=== PATIENT | female | born 1975 | race Caucasian/White ===

== ENCOUNTER 2024-12-07 20:04 | Emergency (ER) | payer BC, SELFPAY ==
[2024-12-07 20:08] VITALS: BP 193/121
[2024-12-07 20:41] LABS: % Basophils 0.4 % (0-2); % Eosinophils 0.7 % (0-6); % Immature Granulocytes 0.2 % (0-0.5); % Lymphocytes 20.6 % (20.5-51.1); % Monocytes 5.2 % (1.7-9.3); % Neutrophils 72.9 % (42.2-75.2); Absolute Basophils 0.1 10^3/uL (0-0.2); Absolute Eosinophils 0.1 10^3/uL (0-0.7); Absolute Lymphocytes 2.5 10^3/uL (1.2-3.4); Absolute Monocytes 0.6 10^3/uL (0.1-0.6); Absolute Neutrophils 8.9 10^3/uL (1.4-6.5); Hematocrit 38.6 % (37.0-47.0); Hemoglobin 13.2 g/dL (12.0-16.0); Mean Corp Hgb Conc. 34.2 g/dL (33.0-37.0); Mean Corpuscular Hgb 30.3 pg (27.0-31.0); Mean Corpuscular Volume 88.5 fL (81.0-99.0); Mean Platelet Volume 11.8 fL (7.4-10.4); Nucleated Red Blood Cells % 0 %; Platelet Count 259 10^3/uL (130-400); Red Blood Cell Count 4.36 10^6/uL (4.20-5.40); Red Cell Dist. Width 14.6 % (11.5-14.5); White Blood Cell Count 12.2 10^3/uL (4.8-10.8)
[2024-12-07 20:47] LABS: HCG, Serum Qualitative Screen Negative
[2024-12-07 20:53] LABS: ALT (SGPT) 34 U/L (0-35); AST (SGOT) 27 U/L (14-36); Albumin 4.2 g/dl (3.5-5.0); Alkaline Phosphatase 70 U/L (38-126); Blood Urea Nitrogen 20 mg/dl (7-17); Calcium 9.8 mg/dl (8.4-10.2); Carbon Dioxide 23 mmol/L (22-30); Chloride 105 mmol/L (98-107); Glucose 117 mg/dl (70-99); Potassium 3.9 mmol/L (3.5-5.1); Sodium 136 mmol/L (135-145); Total Bilirubin 0.3 mg/dl (0.2-1.3); Total Protein 6.6 g/dl (6.3-8.2); eGFR > 60.00
[2024-12-07 21:25] VITALS: BP 173/114
[2024-12-07 22:00] VITALS: BP 180/109
--- NOTE | 2024-12-07 22:16 | ED.GENMED ---
History of Present Illness
General
Chief Complaint: Blood Pressure Problem
Source: patient
Exam Limitations: none
Time Seen by Provider: 12/07/24 21:56
Nursing documentation reviewed up to this point in time: agreed with
History of Present Illness
History of Present Illness:
This a pleasant 49-year-old female who presents with high blood pressure. Patient saw her PCP 3 weeks ago and told she had a high blood pressure. She decided to make some dietary changes and decreased her salt intake. She has been on a carb only
diet and watching what she eats. She took her blood pressure tonight and it was still elevated. Patient denies any symptoms. She is concerned that she may have deleterious side effects from this high blood pressure.
Past History
Past History
ED Past Medical History: Other (Iron deficiency)
ED Past Surgical History: Other (Liposuction)
Social History
Tobacco: Smoker
Alcohol: Occasional
Drug: None
Personal:
Living: with family
Employment: Employed
Review of Systems
Review of Systems
Allergies reviewed?: Yes
All Other Systems: ROS reviewed and negative except as documented in HPI and ROS
Constitutional: Reports no symptoms
EENT: Reports no symptoms
Respiratory: Reports no symptoms
Cardiac: Reports no symptoms
ABD/GI: Reports no symptoms
: Reports no symptoms
Musculoskeletal: Reports no symptoms
Skin: Reports no symptoms
Neurological: Reports no symptoms
Endocrine: Reports no symptoms
Hematologic/Lymphatic: Reports no symptoms
Psychiatric: Reports no symptoms
Phy Exam
General Physical Exam
General Presentation: well appearing and no apparent distress
General Skin: warm and dry
General Habitus: normal
General Mental: alert
General Hydration: appears well hydrated
ENT Exam
ENT Exam: EOMI, pharynx normal, neck supple and normocephalic
Eye Exam
Eye Exam: PERRL, cornea clear and conjunctiva normal
Cardiovascular Exam
Cardiovascular Exam: regular rate/rhythm, no edema, no murmur and normal peripheral pulses
Pulmonary Exam
Pulmonary Exam: lungs clear, no respiratory distress, no rales, no crackles, no rhonchi, no stridor, no wheezing and no cough
Gastrointestinal Exam
Gastrointestinal Exam: normal bowel sounds, non tender, soft, no organomegaly, no pulsatile mass and non distended
Neurological Exam
Neurological Exam: alert, oriented x3, no motor deficits and speech normal
Musculoskeletal Exam
Musculoskeletal Exam: full ROM and no edema
Skin Exam
Skin Exam: normal color, warm/dry, no rash and no petechia
Psychiatric Exam
Psychiatric Exam: normal mood/affect
Course
Orders/Labs/Results
Orders:
Orders
12/07/24 20:12
Electrocardiogram (*1) Urgent
Reason for Study: Tachycardia
12/07/24 20:13
EKG- Treatment ONCE
Test Result ONCE
12/07/24 20:27
Complete Blood Count/With Diff Urgent
Comprehensive Metabolic Panel Urgent
HCG, Serum Qualitative Screen Urgent
12/07/24 22:15
0.9% Sodium Chloride 1000 ml [Nss] 1,000 ml IV BOLUS
12/07/24 22:29
D-Dimer Urgent
TSH Reflex To Free T4 Urgent
Abnormal Lab Results
12/07/24
20:27
WBC 12.2 H 10^3/uL
(4.8-10.8)
RDW 14.6 H %
(11.5-14.5)
MPV 11.8 H fL
(7.4-10.4)
Absolute Neuts (auto) 8.9 H 10^3/uL
(1.4-6.5)
BUN 20 H mg/dl
(7-17)
Glucose 117 H mg/dl
(70-99)
12/07/24 20:27
12/07/24 20:27
Vital Signs
Initial and Last Documented VS:
Initial Vital Signs
Temp Pulse Resp BP Pulse Ox
97.9 F 113 16 193/121 100
12/07/24 20:08 12/07/24 20:08 12/07/24 20:08 12/07/24 20:08 12/07/24 20:08
Last Documented Vital Signs
Temp Pulse Resp BP Pulse Ox
97.9 F 94 18 177/93 99
12/07/24 20:08 12/08/24 00:00 12/08/24 00:00 12/08/24 00:00 12/08/24 00:00
*Critical Care Note
Total Time (30-74mins, 75-104mins- exclusive of procedures): Not Applicable
Update Note
Update Note:
Patient resting comfortably. Blood pressure 150/83. Patient still asymptomatic. She will follow-up with her family doctor.
ED Attending Note
-
Portions of this chart may have been created with voice recognition software.� Occasional wrong word or��sound alike� substitutions may have occurred due to the inherent limitations of voice recognition software.
Discharge Plan
Departure
Patient Disposition: Home (Routine Discharge)
Date of Disposition: 12/08/24
Time of Disposition: 01:22
Patient with high blood pressure during this ER visit?: Yes
Condition: Good
Discharge Problem:
Hypertension
Instructions: High Blood Pressure (DC), BLOOD PRESSURE
Prescriptions:
New
lisinopril 10 mg tablet
10 mg PO DAILY Qty: 7 0RF
No Action
Vitamin D3
10,000 units PO DAILY
phentermine 37.5 mg Capsule
37.5 mg PO DAILY
Rx Instructions:
must administer 30 minutes before or 1-2 hours after breakfast
spironolactone 50 mg Tablet
50 mg PO DAILY
metformin 750 mg Tablet Extended Release 24 Hr
750 mg PO DAILY
selenium 200 mcg Tablet
200 mcg PO DAILY
magnesium Tablet
120 PO DAILY
Rx Instructions:
120 mg
tirzepatide 2.5 mg/0.5 mL Pen Injector
2.5 mg SC QWEEK
Fish Oil
300 mg PO DAILY
Liver Complex
1 tab PO DAILY
ashwagandha root extract
500 mg PO DAILY
green tea extract
225 mg PO DAILY
iron
25 mg PO DAILY
vitamin Q80-ornkq acid
1,000 mcg SC WEEKLY
Referrals:
Moisés Abbott MD [Family Provider] -
Activity Restrictions/Additional Instructions:
Please follow-up with your family doctor to discuss your hypertensive medication
It was a pleasure meeting you and taking part in your care. We hope for your continued healing and wellness.
Please read discharge instructions in their entirety. However, they are for general education and may not describe your exact diagnosis at discharge. Information on your ER visit and medical conditions were discussed with you along with appropriate
follow up information...
If indicated, please take your medications as instructed and indicated on discharge paperwork.
Please schedule a follow up appointment as directed. Call to schedule an appointment
Please return to the emergency department with ANY change in, persisting, or worsening of symptoms. If any of your symptoms do not improve, or persist, or become more severe within 6-12 hours, please return to the emergency department for further
care.
Please return to the emergency department if you develop a headache, neck pain/stiffness, fever greater than 100.4F, chest pain, shortness of breath, persistent nausea, vomiting, slurred speech, difficulty walking, numbness/tingling, weakness, signs
of infection or any other symptoms that are worrisome to you.
If you have any questions or concerns please do not hesitate to call the Hospital at or E-mail me directly at [email or web address]
Interventions
Interventions:
ED- Cardiac Assessment Last Done: 12/07/24 22:34
ED- Neurological Assessment Last Done: 12/07/24 22:34
ED- Pulmonary Assessment Last Done: 12/07/24 22:34
Discharge Date and Time
Print Language: [place]
[2024-12-07] MEDS: NSS 1000 IV (22:31)
[2024-12-07 22:58] LABS: D-Dimer 0.33 ug/mlFEU (0.00-0.50)
[2024-12-07 23:00] VITALS: BP 184/106
[2024-12-07 23:28] LABS: TSH Reflex To Free T4 2.07 uIU/ml (0.47-4.68)
[2024-12-07 23:47] VITALS: BP 158/105
[2024-12-08] VITALS: BP 177/93; BMI 25.9
[2024-12-08 01:00] VITALS: BP 150/78
[2024-12-08 01:43] VITALS: BP 150/78
== END 2024-12-08 01:44 | disposition home or self-care (01) ==
LOC: EMR 20:04
PROVIDERS: Student in an Organized Health Care Education/Training Program; EMERGENCY PHYSICIAN Student in an Organized Health Care Education/Training Program; FAMILY PHYSICIAN Family Medicine
DX: I10 Essential (primary) hypertension (principal); F17.200 Nicotine dependence, unspecified, uncomplicated
CPT/HCPCS: 99284; 80053; 84443; 84703; 85025; 85379; 93005

== ENCOUNTER 2024-12-13 15:03 | Emergency (ER) | payer BC, SELFPAY ==
[2024-12-13 15:09] VITALS: BP 197/111
[2024-12-13 15:17] VITALS: BP 193/105
[2024-12-13 16:27] VITALS: BP 178/98
--- NOTE | 2024-12-13 16:37 | ED.GENMED ---
History of Present Illness
General
Chief Complaint: Blood Pressure Problem
Time Seen by Provider: 12/13/24 16:37
History of Present Illness
History of Present Illness:
TIME OF INITIAL ENCOUNTER:
HPI: Patient reportedly had blood pressure readings of 190s over 107 earlier. She was seen here in the emergency department 6 days ago and at that time was placed on lisinopril. Shortly after she took lisinopril for the first time the following
day, she had rather significant abdominal pain. Her primary switched her to losartan 50 mg. She her blood pressures remained elevated and today she took a second 50 mg losartan dose and ended up coming here for reevaluation.
EXAM:
GENERAL: Well appearing in no distress, I personally took manual blood pressure was 178/90
HEENT: Moist oral mucosa
CARDIOVASCULAR: No murmurs, borderline tachycardic heart rate, regular rhythm, No chest wall tenderness
PULMONARY: No respiratory distress, breath sounds are clear and equal
ABDOMEN: Soft with no peritoneal signs, no tenderness
NEUROLOGIC: Excellent strength all extremities, no coordination deficits
PSYCHIATRIC: Appropriate mental status, normal insight and judgement
EXTREMITIES: Nontender, no edema, moves all extremities equally
SKIN: No rash, no lesions
NUMBER AND COMPLEXITY OF PROBLEMS ADDRESSED AT THE ENCOUNTER
� Chronic conditions affecting care: High blood pressure, diabetes
� Acute Exacerbation and/or Progression of Chronic Illness: This is an acute but recurring problem
� Differential Diagnosis includes:
AMOUNT AND/OR COMPLEXITY OF DATA TO BE REVIEWED AND ANALYZED
� I performed an independent evaluation of and my interpretation is:
EKG: Sinus 100, normal axis, nonspecific ST abnormality, QTc 482 ms
CT:
X-rays:
Laboratory Studies:
Other:
� Review of other/old records: 6 days ago, white count was 12.2, hemoglobin normal, BUN 20, creatinine normal, TSH normal and she was not .
� Clinical information was obtained by an independent historian: I spoke to bedside
� Prescriptions/Medications Considered but not given:
� Further testing considered but not performed: Did not reorder labs as there are no new symptoms and labs are just obtained last week
RISK OF COMPLICATIONS AND/OR MORBIDITY OR MORTALITY OF PATIENT MANAGEMENT
� Social determinants of health affecting care:
� Discussion with other providers: I discussed case with Dr. Gallegos.
� Escalation of care including admission/observation vs risk of discharge considered: The patient did take extra losartan 50 mg today. She has not been regularly taking losartan. In discussing with Dr. Gallegos, we agreed the
patient should be on 50 mg of losartan daily, will add Bystolic 10 mg as she has been tachycardic here, and has an appointment to see Dr. Yuen tomorrow.
ANY OTHER UPDATES:
Past History
Past History
ED Past Medical History: Other (Iron deficiency)
ED Past Surgical History: Other (Liposuction)
Social History
Tobacco: Smoker
Alcohol: Occasional
Drug: None
Personal:
Living: with family
Employment: Employed
Phy Exam
Physical Exam
Physical Exam:
See HPI
Course
Orders/Labs/Results
Orders:
Orders
12/13/24 15:31
EKG [Electrocardiogram (*1)] Urgent
Reason for Study: Vertigo / Dizzy
EKG- Treatment ONCE
12/13/24 17:21
Nebivolol HCl [Bystolic] 10 mg PO NOW STA
Vital Signs
Initial and Last Documented VS:
Initial Vital Signs
Temp Pulse Resp BP Pulse Ox
36.6 C 106 20 197/111 99
12/13/24 15:09 12/13/24 15:09 12/13/24 15:09 12/13/24 15:09 12/13/24 15:09
Last Documented Vital Signs
Temp Pulse Resp BP Pulse Ox
36.6 C 99 16 181/94 100
12/13/24 15:09 12/13/24 17:26 12/13/24 16:27 12/13/24 17:26 12/13/24 17:12
*Critical Care Note
Total Time (30-74mins, 75-104mins- exclusive of procedures): Not Applicable
ED Attending Note
-
Portions of this chart may have been created with voice recognition software.� Occasional wrong word or��sound alike� substitutions may have occurred due to the inherent limitations of voice recognition software.
Discharge Plan
Departure
Patient Disposition: Home (Routine Discharge)
Date of Disposition: 12/13/24
Time of Disposition: 17:34
Patient with high blood pressure during this ER visit?: Yes
Discharge Problem:
High blood pressure
Instructions: BLOOD PRESSURE
Prescriptions:
New
nebivolol [Bystolic] 10 mg tablet
10 mg PO DAILY Qty: 30 0RF
No Action
Vitamin D3
10,000 units PO DAILY
phentermine 37.5 mg Capsule
37.5 mg PO DAILY
Rx Instructions:
must administer 30 minutes before or 1-2 hours after breakfast
spironolactone 50 mg Tablet
50 mg PO DAILY
metformin 750 mg Tablet Extended Release 24 Hr
750 mg PO DAILY
selenium 200 mcg Tablet
200 mcg PO DAILY
magnesium Tablet
120 PO DAILY
Rx Instructions:
120 mg
tirzepatide 2.5 mg/0.5 mL Pen Injector
2.5 mg SC QWEEK
Fish Oil
300 mg PO DAILY
Liver Complex
1 tab PO DAILY
ashwagandha root extract
500 mg PO DAILY
green tea extract
225 mg PO DAILY
iron
25 mg PO DAILY
vitamin X04-lorrw acid
1,000 mcg SC WEEKLY
lisinopril 10 mg tablet
10 mg PO DAILY Qty: 7 0RF
Referrals:
Allan Schmitz MD [Active] - Tomorrow
Activity Restrictions/Additional Instructions:
I spoke to Dr. Gallegos. She recommends continuing losartan 50 mg and adding Bystolic 10 mg daily. Next dose of both tomorrow morning. We gave you a dose of Bystolic 10 mg today. Your kidney function, electrolytes, and thyroid testing were all
normal last time you were here. Return here if worse or other concerns.
Interventions
Interventions:
*Risk Screen - Suicide Last Done: 12/13/24 15:09
*General Assessment Last Done: 12/13/24 15:09
*Neglect/Abuse Screening Last Done: 12/13/24 15:09
*ED- Fall Risk Assessment Last Done: 12/13/24 17:11
*ED COVID-19 Vaccine History Last Done: 12/13/24 17:11
*Nursing Disposition Last Done: 12/13/24 18:03
ED- Cardiac Assessment Last Done: 12/13/24 17:11
ED- Neurological Assessment Last Done: 12/13/24 17:11
ED- Pulmonary Assessment Last Done: 12/13/24 17:11
Discharge Date and Time
Discharge Date/Time: 12/13/24 18:04
Print Language: ROMANSH
[2024-12-13] MEDS: BYSTOLIC 10 MG PO (17:26)
== END 2024-12-13 18:04 | disposition home or self-care (01) ==
LOC: EMR 15:03
PROVIDERS: EMERGENCY PHYSICIAN Emergency Medicine; FAMILY PHYSICIAN Family Medicine
DX: I10 Essential (primary) hypertension (principal); F17.200 Nicotine dependence, unspecified, uncomplicated
CPT/HCPCS: 99283; 93005

== ENCOUNTER → 2025-01-19 10:31 | Outpatient (REF) | payer BC, SELFPAY | LOC: HWWDC 10:31 | PROVIDERS: ATTENDING PHYSICIAN Obstetrics & Gynecology; FAMILY PHYSICIAN Family Medicine | DX: D21.9 Benign neoplasm of connective and other soft tissue, unspecified (principal); Z12.31 Encounter for screening mammogram for malignant neoplasm of breast | CPT/HCPCS: 76830; 76856; 77063; 77067 ==